=== PATIENT | male | born 1980 | race African-American/Black ===

== ENCOUNTER 2018-12-15 12:32 | Inpatient (IN) | payer OTHER ==
[~2018-12-15] VITALS: Ht 172.7 cm; Wt 80.8 kg
--- NOTE | ~2018-12-15 | O ---
[place], [place] OPERATIVE NOTE NAME: NATACHA MARSHALL UNIT #: [id number] ROOM: 515 DOCTOR: RUPERT LOZADA MD BIRTHDATE: [birth year] DOS: 12/17/2018 GASTROENDOSCOPIC REPORT INDICATIONS: The patient has presented with chief complaint of abnormal LFTs, epigastric distress, suspected biliary duct pathology. Labs and records have been reviewed. CT scan of the abdomen and pelvis has been obtained. Soft tissue thickening of anterior renal space, cholelithiasis has been noticed. Stone in the gallbladder on CT scan has been documented. Liver, spleen, adrenal gland and kidneys are suboptimally identified. PROCEDURE: Today's procedure part of investigation is ERCP and precut papillotomy. PREMEDICATION: Propofol. SCOPE: Olympus side-viewing duodenoscope. REPORT: After putting the patient in left lateral position and application of lubricant to the scope, the scope was introduced. Thereafter, under direct visualization, advanced through the length of esophagus into gastric pouch. Evidence of gastritis was noticed. Ampulla of Vater was defined. 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 Minimal injection of the pancreatic duct was obtained and pancreatic duct in the tail, body, genuine, appears to be within normal limits. Multiple attempts were made to negotiate the cannula into the common duct was unsuccessful, precut papillotomy extended. The patient extubated, tolerated the procedure well. IMPRESSION: Papillary stenosis, status post precut papillotomy, status post infusion of dye into the pancreatic duct with normal finding, no common duct access was done. PLAN AND DISCUSSION: Observation, possibly cholecystectomy. [place], [place] OPERATIVE NOTE NAME: NATACHA MARSHALL UNIT #: [id number] ROOM: 515 DOCTOR: RUPERT LOZADA MD BIRTHDATE: [birth year] RUPERT LOZADA MD CM:OPRECORD:OPERATIVE NOTE [id number] RUPERT LOZADA MD 12/25/18 2271 interface
--- NOTE | ~2018-12-15 | CON ---
[place], [place] REPORT OF CONSULTATION NAME: NATACHA MARSHALL UNIT #: [id number] ROOM: 515 DOCTOR: RUPERT LOZADA MD BIRTHDATE: [birth year] DOS: 12/15/2018 HISTORY OF PRESENT ILLNESS: This is a 38-year-old patient, who has presented with chief complaint of, I have a gallstone, I have pain in my right upper quadrant, I have been told by my doctor that I have gallbladder disease. Apparently, the story belongs to 2 weeks ago when he has checked with his family doctor in [place] and his pain has intensified at this stage and he has been admitted for further workup. He is a drinker of one-third of the bottle of vodka at least daily for past several years and intensely over the past 1 year according to himself. His white blood cell at that time was 8.0, H and H was 12 and 35, and platelets was 316. Urinalysis was negative. INR was 1.1. Comprehensive metabolic panel, electrolytes balanced, BUN of 2.8. SGOT and SGPT of 162 and 84. Alkaline phosphatase of 304. Lipase was 94. Ethyl alcohol was at 43 level. Gallbladder sonogram was done. He was found to have a gallbladder, which is dilated and contains sludge as well as multiple stones. There is no pericholecystic fluid or wall thickening. Bile duct is 0.6 cm. The liver is enlarged. No focal hepatic lesions. There is no intrahepatic biliary dilation. Pancreas demonstrates normal homogeneous texture. PAST MEDICAL HISTORY: Associated with essential hypertension and history of hyperparathyroidism. PAST SURGICAL HISTORY: Parathyroidectomy. ALLERGIES: No known medications. SOCIAL HISTORY: He is a nonsmoker; however, heavy alcohol consumption, particularly over the past 1 year about at least one-third of a bottle of vodka, most likely half a bottle by clinical estimation. FAMILY HISTORY: Hypertension and diabetes mellitus. REVIEW OF SYSTEMS: HEENT: In general, denies double vision, blurred vision. RESPIRATORY: Denies acute shortness of breath. CARDIOVASCULAR: Denies acute chest pain. DIGESTIVE SYSTEM: No hematemesis. No hematochezia. Right upper quadrant pain, nausea, vomiting. PHYSICAL EXAMINATION: VITAL SIGNS: Stable. HEENT: Head is normocephalic, nontraumatic. Mouth and buccal mucosa benign. NECK: Supple. No thyromegaly. No cervical lymphadenopathy. CHEST: Symmetric anatomy, equal expansion. No wheeze. No rhonchi. HEART: Normal sinus rhythm. No gallop. No murmur. ABDOMEN: Soft. Tender, particularly in right upper quadrant. Bowel sounds present. EXTREMITIES: Trace pedal edema. NEUROLOGIC: He is alert and oriented to time, place, and person. Sensory and motor intact. Cranial nerves 2-12 intact. [place], [place] REPORT OF CONSULTATION NAME: NATACHA MARSHALL UNIT #: [id number] ROOM: [facility] DOCTOR: RUPERT LOZADA MD BIRTHDATE: [birth year] IMPRESSION: 1. Abnormal liver function test could be multifactorial on hepatocellular disease secondary to alcohol overconsumption. 2. Presence of cholelithiasis and sludge, possibility of choledocholithiasis has to be calculated. 3. Alcohol intoxication, chemically proven. 4. History of systemic hypertension. PLAN AND DISCUSSION: We are going to organize an CT scan of the abdomen and pelvis in this patient tomorrow morning with contrast and we are going to have surgical team to assess him. He eventually needs to have a cholecystectomy done after his detoxification completes. If a stone was found in common duct, then we will approach with endoscopic means. Thank you very much indeed. RUPERT LOZADA MD CM:CONSTR:REPORT OF CONSULTATION 52 12/16/18 0406 interface
[2018-12-15 12:33] VITALS: BP 153/100
[2018-12-15 12:59] LABS: BILIRUBIN NEGATIVE (NEGATIVE); BLOOD NEGATIVE (NEGATIVE); CLARITY CLEAR (CLEAR); COLOR YELLOW (YELLOW); GLUCOSE NEGATIVE (NEGATIVE); KETONE NEGATIVE (NEGATIVE); LEUKO ESTERASE NEGATIVE (NEGATIVE); NITRITE NEGATIVE (NEGATIVE)
[2018-12-15 13:07] LABS: BASO # 0.1 10*3/uL (0.0-0.1); BASO % 0.6 % (0.0-1.0); EOS # 0.1 10*3/uL (0.0-0.4); EOS % 0.9 % (1.0-4.0); HEMOGLOBIN 12.1 g/dl (14.0-18.0); LYMPH # 1.6 10*3/uL (1.3-4.4); LYMPH % 19.8 % (27.0-41.0); MEAN CELL VOLUME 96.2 fl (80.0-94.0); MEAN CORPUSCULAR HGB 33.2 pg (27.0-31.0); MEAN CORPUSCULAR HGB CONC 34.6 g/dl (33.0-37.0); MEAN PLATELET VOLUME 10.3 fl (9.6-12.3); MONO # 0.9 10*3/uL (0.1-1.0); MONO % 10.7 % (3.0-9.0); NEUT # 5.4 10*3/uL (2.3-7.9); NEUT % 67.8 % (47.0-73.0); PLATELET COUNT AUTOMATED 317 10*3/uL (130-400); RED BLOOD COUNT 3.64 10*6/uL (4.50-5.90); RED CELL DISTRI WIDTH 19.9 % (0-14.5)
[2018-12-15 13:12] LABS: WBC 0-2 wbc/hpf (0-5)
[2018-12-15 13:16] LABS: INTERNATIONAL NORM RATIO 1.1 (2.0-3.5)
[2018-12-15 13:23] LABS: ALBUMIN 2.5 gm/dl (3.1-4.5); CREATININE 1.6 mg/dL (0.70-1.30); POTASSIUM 3.6 mmol/L (3.5-5.1)
[2018-12-15 14:46] VITALS: BP 166/100
[2018-12-15 14:57] VITALS: BP 162/96
[2018-12-15 16:00] VITALS: BP 157/94
[2018-12-15] MEDS ORDERED: AMLOD-VALSA-HC1 EAC2 PO (16:06)
[2018-12-15] MEDS ORDERED: CARVEDILOL25 MG PO (16:07)
[2018-12-15 20:00] VITALS: BP 158/103
[2018-12-16] VITALS: BP 148/93
[2018-12-16 07:14] LABS: BASO # 0.1 10*3/uL (0.0-0.1); BASO % 0.8 % (0.0-1.0); EOS # 0.2 10*3/uL (0.0-0.4); EOS % 2.9 % (1.0-4.0); HEMATOCRIT 30.3 % (42.0-52.0); HEMOGLOBIN 10.5 g/dl (14.0-18.0); LYMPH # 2.2 10*3/uL (1.3-4.4); LYMPH % 29.6 % (27.0-41.0); MEAN CELL VOLUME 95.3 fl (80.0-94.0); MEAN CORPUSCULAR HGB CONC 34.7 g/dl (33.0-37.0); MEAN PLATELET VOLUME 10.4 fl (9.6-12.3); MONO % 12.6 % (3.0-9.0); NEUT # 4.1 10*3/uL (2.3-7.9); NEUT % 53.8 % (47.0-73.0); PLATELET COUNT AUTOMATED 284 10*3/uL (130-400); RED BLOOD COUNT 3.18 10*6/uL (4.50-5.90); RED CELL DISTRI WIDTH 19.3 % (0-14.5); WHITE BLOOD COUNT 7.6 10*3/uL (4.8-10.8)
[2018-12-16 07:40] LABS: ALBUMIN 2.2 gm/dl (3.1-4.5); POTASSIUM 3.4 mmol/L (3.5-5.1)
[2018-12-16 07:46] LABS: CREATININE 1.68 mg/dL (0.70-1.30); FREE T4 1.09 ng/dl (0.76-1.46); PHOSPHOROUS 1.8 mg/dL (2.5-4.9); TOTAL PROTEIN 6.3 gm/dL (6.4-8.2)
[2018-12-16 08:00] VITALS: BP 132/86
[2018-12-16 10:21] LABS: VITAMIN D, 25-HYDROXY 13.5 ng/mL (30-100)
[2018-12-16 12:00] VITALS: BP 150/93
[2018-12-16 20:00] VITALS: BP 159/105
[2018-12-17] VITALS (10 sets, daily range): BP systolic 131–158; BP diastolic 89–97
[2018-12-17 07:09] LABS: HEPATITIS B SURFACE AG Negative (Negative); HEPATITIS C VIRUS ANTIBODY 0.1 s/co (0.0-0.9)
[2018-12-17 07:25] LABS: ALBUMIN 2.6 gm/dl (3.1-4.5); POTASSIUM 3.8 mmol/L (3.5-5.1)
[2018-12-17 07:28] LABS: CREATININE 1.72 mg/dL (0.70-1.30); TOTAL PROTEIN 7.1 gm/dL (6.4-8.2)
[2018-12-18] VITALS: BP 141/85
[2018-12-18 06:55] LABS: ALBUMIN 2.3 gm/dl (3.1-4.5); POTASSIUM 3.8 mmol/L (3.5-5.1)
[2018-12-18 06:58] LABS: CREATININE 1.65 mg/dL (0.70-1.30); TOTAL PROTEIN 6.5 gm/dL (6.4-8.2)
[2018-12-18 08:00] VITALS: BP 142/92
[2018-12-18 12:00] VITALS: BP 150/88
[2018-12-18] MEDS ORDERED: PROTONIX40 MG PO (14:04)
[2018-12-18] MEDS ORDERED: PHARMASSURE FO0.4 MG PO (14:04)
[2018-12-18] MEDS ORDERED: VITAMIN D32000 UNI1 PO (14:04)
[2019-01-29] MEDS ORDERED: NORCO 5-325 TA1 EACH PO (09:57)
== END 2018-12-18 15:50 | disposition home or self-care (01) | DRG 444 ==
LOC: ED 12:32 → 5E 14:43 → EDHOLD 14:43 → 5E 15:26
PROVIDERS: Internal Medicine; Internal Medicine Gastroenterology; Nurse Practitioner Family; ADMIT Internal Medicine
PROC: 0FJD8ZZ Inspection of Pancreatic Duct, Via Natural or Artificial Opening Endoscopic (ICD-10-PCS; principal; 2018-12-17)
PROC: BF181ZZ Fluoroscopy of Pancreatic Ducts using Low Osmolar Contrast (ICD-10-PCS; principal; 2018-12-17)
DX: K80.21 Calculus of gallbladder without cholecystitis with obstruction (principal); N17.0 Acute kidney failure with tubular necrosis; E43 Unspecified severe protein-calorie malnutrition; K85.90 Acute pancreatitis without necrosis or infection, unspecified; K92.0 Hematemesis; E87.1 Hypo-osmolality and hyponatremia; D53.9 Nutritional anemia, unspecified; K22.70 Barrett's esophagus without dysplasia; R16.0 Hepatomegaly, not elsewhere classified; F10.920 Alcohol use, unspecified with intoxication, uncomplicated; R06.82 Tachypnea, not elsewhere classified; E66.3 Overweight; I10 Essential (primary) hypertension; R00.1 Bradycardia, unspecified; E87.6 Hypokalemia; E83.39 Other disorders of phosphorus metabolism; E53.8 Deficiency of other specified B group vitamins; Z82.49 Family history of ischemic heart disease and other diseases of the circulatory system; Z83.3 Family history of diabetes mellitus; Z83.79 Family history of other diseases of the digestive system; Z79.899 Other long term (current) drug therapy; Z68.27 Body mass index [BMI] 27.0-27.9, adult

== ENCOUNTER → 2019-01-01 | Outpatient (CLI) | payer OTHER ==
[~2019-01-01] MED LIST: AMLOD-VALSA-HC1 EAC2 PO; CARVEDILOL25 MG PO; NORCO 5-325 TA1 EACH PO; PHARMASSURE FO0.4 MG PO; PROTONIX40 MG PO; VITAMIN D32000 UNI1 PO
== END | disposition home or self-care (01) ==
LOC: RESCLI 01:56
DX: Z09 Encounter for follow-up examination after completed treatment for conditions other than malignant neoplasm (principal); E21.3 Hyperparathyroidism, unspecified; K21.9 Gastro-esophageal reflux disease without esophagitis; E53.8 Deficiency of other specified B group vitamins; E55.9 Vitamin D deficiency, unspecified; E78.5 Hyperlipidemia, unspecified; I12.9 Hypertensive chronic kidney disease with stage 1 through stage 4 chronic kidney disease, or unspecified chronic kidney disease; N18.3 Chronic kidney disease, stage 3 (moderate); Z76.89 Persons encountering health services in other specified circumstances; Z79.899 Other long term (current) drug therapy; Z88.8 Allergy status to other drugs, medicaments and biological substances

== ENCOUNTER → 2019-01-29 | Day surgery (SDC) | payer OTHER ==
[2019-01-27 10:19] LABS: BASO % 0.8 % (0.0-1.0); EOS # 0.1 10*3/uL (0.0-0.4); EOS % 1.4 % (1.0-4.0); HEMATOCRIT 38.4 % (42.0-52.0); HEMOGLOBIN 13.5 g/dl (14.0-18.0); LYMPH # 1.3 10*3/uL (1.3-4.4); MEAN CELL VOLUME 97.7 fl (80.0-94.0); MEAN CORPUSCULAR HGB 34.4 pg (27.0-31.0); MEAN CORPUSCULAR HGB CONC 35.2 g/dl (33.0-37.0); MEAN PLATELET VOLUME 9.8 fl (9.6-12.3); MONO # 0.4 10*3/uL (0.1-1.0); MONO % 8.3 % (3.0-9.0); NEUT # 3.3 10*3/uL (2.3-7.9); NEUT % 64.3 % (47.0-73.0); PLATELET COUNT AUTOMATED 322 10*3/uL (130-400); RED BLOOD COUNT 3.93 10*6/uL (4.50-5.90); RED CELL DISTRI WIDTH 13.2 % (0-14.5); WHITE BLOOD COUNT 5.1 10*3/uL (4.8-10.8)
[2019-01-27 10:45] LABS: ALBUMIN 3.1 gm/dl (3.1-4.5); BILIRUBIN, DIRECT 1.3 mg/dL (0.0-0.2); CREATININE 1.9 mg/dL (0.70-1.30); POTASSIUM 3.5 mmol/L (3.5-5.1); TOTAL PROTEIN 7.6 gm/dL (6.4-8.2)
[2019-01-27 10:48] LABS: ACT PARTIAL THROMBO TIME 32.8 SECONDS (20.0-32.1); INTERNATIONAL NORM RATIO 1.2 (2.0-3.5)
[2019-01-29] VITALS (9 sets, daily range): BP systolic 149–164; BP diastolic 100–110
[~2019-01-29] VITALS: Ht 175.2 cm; Wt 86.2 kg
--- NOTE | ~2019-01-29 | O ---
[place], [place] OPERATIVE NOTE NAME: NATACHA MARSHALL UNIT #: [id number] ROOM: DOCTOR: JHONATAN KAYE MD BIRTHDATE: [birth year] DOS: 01/29/2019 PREOPERATIVE DIAGNOSES: Gallstones, history of gallstone pancreatitis. POSTOPERATIVE DIAGNOSES: Gallstones, history of gallstone pancreatitis. PROCEDURE: Laparoscopic cholecystectomy. SURGEON: Jhonatan Kaye MD ALCOHOL RUBBER: DEMETRI. ANESTHESIA: General with endotracheal intubation. INDICATIONS: This is a 38-year-old -[place] gentleman here for an elective laparoscopic cholecystectomy. He has a history of gallstone associated with pancreatitis. The procedure and its complications were explained to the patient in detail preoperatively. Complications that were discussed included but were not limited to, bleeding, biloma formation, hematoma formation, infection, abscess formation, incisional hernia formation, inadvertent injury to common bile duct and prolonged pain. He agreed to proceed. DESCRIPTION OF PROCEDURE: After identifying the patient, the patient was brought to the operating suite and laid in the supine position. After induction of general anesthesia, timeout procedure was called at that time and the parts were then painted and draped in the usual sterile fashion. An incision below the umbilicus was made in a transverse fashion. The skin and the subcutaneous tissue was incised and the fascia was incised vertically and 2 stay sutures were taken on either side. The peritoneum was opened and a 12 mm Gunjan port was introduced into the peritoneal cavity. A pneumoperitoneum was created. Under direct vision, an epigastric incision of 12 mm and two 5 mm incision were made in the right upper quadrant and appropriate size ports were introduced. The gallbladder was retracted superiorly and laterally. The cystic duct and the cystic artery were carefully dissected until the critical view of safety was obtained and the triangle of Calot was clearly identified. Thereafter, each of these structures were clipped 3 times and cut between the first and second clip. The gallbladder was then removed from the bed of the gallbladder with the help of electrocautery. It was placed in an EndoCatch bag and removed from the peritoneal cavity and sent for histopathological diagnosis. Hemostasis was achieved in the liver bed and after the trocars were removed under direct vision, there was no bleeding seen. The umbilical port was also removed and the stay sutures were tied together and an additional 0 Vicryl suture was taken to close the fascial defect. The skin edges were infiltrated with 1% plain lidocaine and approximated with the help of 4-0 Vicryl in a subcuticular running fashion. Dressings were placed. The patient tolerated the procedure well. He was extubated uneventfully and brought back to the recovery room in stable fashion. There were no complications. Dr. Jhonatan Kaye, the attending surgeon, was present throughout the operating case. [place], [place] OPERATIVE NOTE NAME: NATACHA MARSHALL UNIT #: [id number] ROOM: DOCTOR: JHONATAN KAYE MD BIRTHDATE: [birth year] Jhonatan Kaye MD CM:OPRECORD:OPERATIVE NOTE [id number] JHONATAN KAYE MD 01/29/19 1039 interface
== END | disposition home or self-care (01) ==
LOC: SDC 01-08 13:15
PROVIDERS: Surgery
DX: K80.10 Calculus of gallbladder with chronic cholecystitis without obstruction (principal); K85.10 Biliary acute pancreatitis without necrosis or infection; I10 Essential (primary) hypertension; E03.9 Hypothyroidism, unspecified; Z98.890 Other specified postprocedural states; Z79.899 Other long term (current) drug therapy; Z82.49 Family history of ischemic heart disease and other diseases of the circulatory system; Z83.3 Family history of diabetes mellitus

== ENCOUNTER → 2019-02-05 | Outpatient (CLI) | payer OTHER | END | disposition home or self-care (01) | LOC: RESCLI 00:23 | DX: I12.9 Hypertensive chronic kidney disease with stage 1 through stage 4 chronic kidney disease, or unspecified chronic kidney disease (principal); N18.3 Chronic kidney disease, stage 3 (moderate); E21.3 Hyperparathyroidism, unspecified; K21.9 Gastro-esophageal reflux disease without esophagitis; E53.8 Deficiency of other specified B group vitamins; E55.9 Vitamin D deficiency, unspecified; E78.5 Hyperlipidemia, unspecified; Z79.899 Other long term (current) drug therapy; Z90.49 Acquired absence of other specified parts of digestive tract ==